=== PATIENT | female | born 1995 | race American Indian/Alaskan Native ===

== ENCOUNTER → 2016-06-13 | Outpatient (CLI) | payer OTHER ==
[2016-06-13 12:38] LABS: BASO % 0.4 % (0.0-1.0); EOS # 0.2 K/mm3 (0.0-0.50); EOS % 3.1 % (0.0-3.0); LARGE UNSTAINED CELL # 0.1 K/mm3 (0.0-0.4); LARGE UNSTAINED CELL % 1.9 % (0.0-4.0); LYMPH % 33.3 % (24.0-44.0); MEAN CORPUSCULAR HEMOGLOBIN 26.4 pg (27.0-33.0); MEAN CORPUSCULAR HGB CONC 32.3 g/dl (32.0-36.5); MEAN CORPUSCULAR VOLUME 81.5 fl (80.0-96.0); MONO # 0.4 K/mm3 (0.0-0.8); MONO % 6.7 % (0.0-5.0); NEUTROPHILS # 3.1 K/mm3 (1.8-7.7); NEUTROPHILS % 54.6 % (36.0-66.0); PLATELET COUNT, AUTOMATED 329 k/mm3 (150-450); RED CELL DISTRIBUTION WIDTH 15.4 % (11.5-14.5); WHITE BLOOD COUNT 5.7 K/mm3 (4.0-10.0)
[2016-06-13 13:13] LABS: ALBUMIN 3.9 GM/DL (3.2-5.2); ALBUMIN/GLOBULIN RATIO 1.08 (1.00-1.93); ALKALINE PHOSPHATASE 98 U/L (45-117); ALT/SGPT 16 U/L (12-78); AMYLASE 34 U/L (25-115); ANION GAP 8 MEQ/L (8-16); AST/SGOT 18 U/L (15-37); BILIRUBIN,DIRECT < 0.1 MG/DL (0.0-0.2); BILIRUBIN,TOTAL 0.3 MG/DL (0.2-1.0); BLOOD UREA NITROGEN 10 MG/DL (7-18); CARBON DIOXIDE LEVEL 25 MEQ/L (21-32); CHLORIDE LEVEL 106 MEQ/L (98-107); CREATININE FOR GFR 0.77 MG/DL (0.55-1.02); GLUCOSE, FASTING 89 MG/DL (70-105); SODIUM LEVEL 139 MEQ/L (136-145); TOTAL PROTEIN 7.5 GM/DL (6.4-8.2)
--- NOTE | 2016-06-13 15:25 | REP ---
CT ABDOMEN PELVIS WITHOUT IV AND ORAL CONTRAST: 06/13/2016 CLINICAL HISTORY: Right left lower quadrant pain, diarrhea. The patient denies . TECHNIQUE: Oral Gastrografin mixture 10 mL in as an 290 mL of flavored water for two doses per our bowel contrast protocol. The patient received 100 mL of Isovue 370 and scanning through the abdomen pelvis with coronal and sagittal reconstructions. FINDINGS: CT ABDOMEN: No comparison. Lung bases are clear. Heart is not enlarged. No pericardial thickening or effusion. No hiatal hernia. The liver, spleen, gallbladder, pancreas, adrenal glands and kidneys are unremarkable. Stomach partially filled with oral contrast not abnormally dilated. Small bowel loops in the abdomen are without dilatation. There is no aortic aneurysm and no periaortic or retroperitoneal/mesenteric pathologic sized lymphadenopathy. Oral contrast reaches the splenic flexure. There is no colitis, diverticulitis, stricture or mass in the abdomen proper. On lung windows for all slice levels show no signs of perforation, abscess or free air. The bone windows show lumbar and thoracic vertebral levels included and the visualized ribs are all normal. CT PELVIS. The bony hips, pelvis, sacrum, SI joints and symphysis pubis are unremarkable. There is no renal, ureteral or bladder stone. Bladder adequately filled without mass or wall thickening. Uterus slightly tilted towards the right side of the pelvis, anteverted and without mass. Small follicles in the ovaries which are symmetric in size. No pelvic lymphadenopathy. Trace free fluid in the cul-de-sac. This may be physiologic small bowel loops grossly intact. The inguinal region show no hernia or adenopathy. There is no ventral hernia. Pelvic musculature unremarkable. Appendix seen and normal. Ileocecal valve unremarkable. IMPRESSION: 1. Both ovaries are seen with small follicles and trace free fluid in the cul-de-sac which may be physiologic. There are no inflammatory changes colon, small bowel or appendix. 2. No abdominal or pelvic adenopathy, ascites or free air. 3. Solid organs in the upper abdomen unremarkable. Signed by Sha Diamond MD 06/13/2016 05:23 P
== END ==
LOC: M LAB 11:54
PROVIDERS: ATTEND Physician Assistant
DX: R10.31 Right lower quadrant pain (principal); R10.32 Left lower quadrant pain; R19.7 Diarrhea, unspecified

== ENCOUNTER → 2016-07-13 | Outpatient (CLI) | payer OTHER ==
--- NOTE | 2016-07-13 11:14 | REP ---
Hepatobiliary scan and gallbladder ejection fraction: History: Generalized abdominal pain. Technique: 6.4 mCi of technetium-99m mebrofenin was injected and sequential anterior images are acquired. 65 minutes after the mebrofenin injection, the patient consumed 8 ounces Ensure and an additional 60 minutes of imaging was acquired. Regions of interest are plotted around the gallbladder. Findings: The initial hepatocellular parenchymal uptake phase is normal and homogeneous. Intra- and extra-hepatic bile ducts and duodenum are labeled by the 10 -minute image. The gallbladder is first labeled on the 10 -minute image. There is normal washout from the liver parenchyma into the gallbladder and small intestine on subsequent images. The gallbladder ejection fraction is 35 %. Values greater than 35 % are considered normal with this technique. Impression: Normal hepatobiliary scan and borderline gallbladder ejection fraction. Signed by Paco Juarez MD 07/13/2016 11:05 A
== END ==
LOC: M RAD 07:16
PROVIDERS: ATTEND Physician Assistant
DX: R10.84 Generalized abdominal pain (principal)

== ENCOUNTER → 2016-09-17 | Outpatient (CLI) | payer OTHER ==
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
== END ==
LOC: M WUC 17:33
PROVIDERS: ATTEND Physician Assistant
DX: S90.31XA Contusion of right foot, initial encounter (principal); X58.XXXA Exposure to other specified factors, initial encounter; Y92.89 Other specified places as the place of occurrence of the external cause; Y93.89 Activity, other specified; Y99.8 Other external cause status

== ENCOUNTER → 2016-11-06 | Outpatient (CLI) | payer OTHER | LOC: M LAB 13:14 | PROVIDERS: ATTEND Physician Assistant | DX: N91.1 Secondary amenorrhea (principal) ==

== ENCOUNTER 2017-01-19 19:04 | Emergency (ER) | payer OTHER ==
[~2017-01-19] VITALS: Ht 154.9 cm; Wt 85.9 kg
[2017-01-19] MEDS ORDERED: PREN1TAB26 PO (19:27)
[2017-01-19] MEDS ORDERED: ONDANSETRON 4MG/2ML VIAL (J2405) IV ONE (19:30)
[2017-01-19] MEDS ORDERED: NS 1,000 ML IV ONE (19:30)
[2017-01-19] MEDS ORDERED: EPIP0.3I2 IJ (19:32)
[2017-01-19] MEDS ORDERED: VENTAER IN (19:32)
[2017-01-19 20:14] LABS: BASO % 0.2 % (0.0-1.0); EOS # 0.1 10^3/uL (0.0-0.50); EOS % 1.3 % (0.0-3.0); IMMATURE GRANULOCYTE % 0.3 % (0-0); LYMPH % 21.2 % (24.0-44.0); MEAN CORPUSCULAR HEMOGLOBIN 28.4 pg (27.0-33.0); MEAN CORPUSCULAR HGB CONC 33.5 g/dl (32.0-36.5); MEAN CORPUSCULAR VOLUME 84.8 fl (80.0-96.0); MONO # 0.8 10^3/uL (0.0-0.8); MONO % 8.5 % (0.0-5.0); NEUTROPHILS # 6.4 10^3/uL (1.8-7.7); NEUTROPHILS % 68.5 % (36.0-66.0); PLATELET COUNT, AUTOMATED 295 10^3/uL (150-450); RED CELL DISTRIBUTION WIDTH 14.6 % (11.5-14.5); WHITE BLOOD COUNT 9.4 10^3/uL (4.0-10.0)
[2017-01-19 20:25] LABS: INR 0.89
[2017-01-19 20:39] LABS: ALBUMIN 3.4 GM/DL (3.2-5.2); ALBUMIN/GLOBULIN RATIO 0.79 (1.00-1.93); ALKALINE PHOSPHATASE 63 U/L (45-117); ALT/SGPT 13 U/L (12-78); ANION GAP 9 MEQ/L (8-16); AST/SGOT 14 U/L (7-37); BILIRUBIN,DIRECT < 0.1 MG/DL (0.0-0.2); BILIRUBIN,TOTAL < 0.1 MG/DL (0.2-1.0); BLOOD UREA NITROGEN 7 MG/DL (7-18); CALCIUM LEVEL 9.4 MG/DL (8.5-10.1); CARBON DIOXIDE LEVEL 23 MEQ/L (21-32); CHLORIDE LEVEL 106 MEQ/L (98-107); CREATININE FOR GFR 0.74 MG/DL (0.55-1.02); GLOMERULAR FILTRATION RATE > 60.0 (>60); GLUCOSE, FASTING 100 MG/DL (70-105); POTASSIUM SERUM 3.7 MEQ/L (3.5-5.1); SODIUM LEVEL 138 MEQ/L (136-145); TOTAL PROTEIN 7.7 GM/DL (6.4-8.2)
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
--- NOTE | 2017-01-19 21:10 | REPUSA ---
Clinical history: Pain. Findings: Real-time transabdominal and transvaginal ultrasound images of the pelvis were obtained. A single intrauterine gestation with a pole with the crown rump length of 9.4 cm. heart rat e of 168 bpm. Cervix measures 5.0 cm in length. The placenta is anterior. There is no evidence of zoran centa previa. Amniotic fluid volume is grossly within normal limits. The uterus demonstrates normal e chotexture and echogenicity. The endometrial stripe measures 3 mm and is within normal limits. No adn exal masses are seen. There is no evidence of free fluid. Impression: Single live intrauterine measuring 15 weeks 2 days, with estimated due date of 07/13/2017.
[2017-01-19] MEDS ORDERED: ACETAMINOPHEN 325 MG TAB PO ONE (21:15)
[2017-01-19 22:56] VITALS: BP 115/64
== END 2017-01-19 23:16 | disposition home or self-care (01) ==
LOC: M ED 19:04
DX: O99.89 Other specified diseases and conditions complicating pregnancy, childbirth and the puerperium (principal); R10.9 Unspecified abdominal pain; V40.6XXA Car passenger injured in collision with pedestrian or animal in traffic accident, initial encounter; Y92.411 Interstate highway as the place of occurrence of the external cause; Y93.9 Activity, unspecified; Y99.9 Unspecified external cause status; Z3A.15 15 weeks gestation of pregnancy; O99.419 Diseases of the circulatory system complicating pregnancy, unspecified trimester; O99.52 Diseases of the respiratory system complicating childbirth; Z79.899 Other long term (current) drug therapy
CPT/HCPCS: 76705; 76811; 80048; 80076; 81001; 83690; 85025; 85460; 85610; 86850; 86900; 86901; 93041; 96361; 96374; 99285; J2405

== ENCOUNTER → 2017-08-26 | Outpatient (CLI) | payer OTHER | LOC: M RAD 12:58 | DX: M51.16 Intervertebral disc disorders with radiculopathy, lumbar region (principal); M51.17 Intervertebral disc disorders with radiculopathy, lumbosacral region ==

== ENCOUNTER → 2018-04-24 | Outpatient (REF) | payer OTHER ==
[~2018-04-24] MED LIST: EPIP0.3I2 IJ; PREN1TAB26 PO; VENTAER IN
== END ==
LOC: M SFHCLERA 10:01
PROVIDERS: ATTEND Nurse Practitioner Family
DX: R53.81 Other malaise (principal)

== ENCOUNTER → 2018-08-30 | Outpatient (REF) | payer OTHER | LOC: M SFHCLERA 10:17 | PROVIDERS: ATTEND Nurse Practitioner Family | DX: J02.9 Acute pharyngitis, unspecified (principal) ==

== ENCOUNTER 2018-12-10 20:35 | Emergency (ER) | payer OTHER ==
[~2018-12-10] VITALS: Ht 157.5 cm; Wt 92.7 kg
[2018-12-10 21:48] LABS: BASO % 0.3 % (0.0-1.0); EOS # 0.2 10^3/uL (0.0-0.5); EOS % 2.6 % (0.0-3.0); HEMATOCRIT 39.6 % (36.0-47.0); HEMOGLOBIN 13.6 g/dl (12.0-15.5); LYMPH # 2.5 10^3/uL (1.5-5.0); LYMPH % 35.1 % (24.0-44.0); MEAN CORPUSCULAR HGB CONC 34.3 g/dl (32.0-36.5); MEAN CORPUSCULAR VOLUME 90.2 fl (80.0-96.0); MONO # 0.7 10^3/uL (0.0-0.8); MONO % 9.1 % (0.0-5.0); NEUTROPHILS # 3.8 10^3/uL (1.5-8.5); NEUTROPHILS % 52.8 % (36.0-66.0); PLATELET COUNT, AUTOMATED 281 10^3/uL (150-450); RED BLOOD COUNT 4.39 10^6/uL (4.00-5.40); WHITE BLOOD COUNT 7.2 10^3/uL (4.0-10.0)
[2018-12-10] MEDS ORDERED: NITROFURANTOIN (MACROBID) 100 MG CAP PO ONE (22:15)
[2018-12-10 22:46] VITALS: BP 124/77
== END 2018-12-10 22:47 | disposition home or self-care (01) ==
LOC: M ED 20:35
DX: O99.89 Other specified diseases and conditions complicating pregnancy, childbirth and the puerperium (principal); R10.32 Left lower quadrant pain; M51.06 Intervertebral disc disorders with myelopathy, lumbar region; J30.89 Other allergic rhinitis; J30.2 Other seasonal allergic rhinitis; O26.899 Other specified pregnancy related conditions, unspecified trimester; Z87.448 Personal history of other diseases of urinary system; O99.619 Diseases of the digestive system complicating pregnancy, unspecified trimester; O99.519 Diseases of the respiratory system complicating pregnancy, unspecified trimester; O34.80 Maternal care for other abnormalities of pelvic organs, unspecified trimester
CPT/HCPCS: 80047; 81001; 81002; 81025; 84702; 85025; 87086; 99283; G0463

== ENCOUNTER → 2018-12-10 | Outpatient (REF) | payer OTHER | LOC: M SFHCLERA 19:33 | PROVIDERS: ATTEND Nurse Practitioner Family | DX: Z53.9 Procedure and treatment not carried out, unspecified reason (principal) ==